=== PATIENT | male | born 1945 | race Caucasian/White ===

== ENCOUNTER 2018-07-31 11:45 | Day surgery (SDC) | payer MEDICARE, OTHER ==
[2018-07-30 13:00] LABS: HEMATOCRIT 41.8 % (42.0-54.0); HEMOGLOBIN 14.2 g/dL (13.5-17.5); MCH 30.8 pg (26.0-34.0); MCV 90.7 fL (80.0-100.0); MEAN PLATELET VOLUME 9.8 fL (7.4-10.4); RBC 4.61 10x6/uL (4.20-6.10); RDW 12.2 % (11.5-14.5); WBC 7.3 10x3/uL (4.8-10.8)
[~2018-07-31] VITALS: Ht 170.2 cm; Wt 91.6 kg
--- NOTE | ~2018-07-31 | OP ---
PATIENT NAME: JESUS MANUEL OSHEA MEDICAL RECORD: [id number] :47 LOCATION:D.OPS ADMISSION DATE: SURGEON: ISAI RODRIGUEZ DATE OF OPERATION: 07/31/2018 SURGEON: Isai Rodriguez DPM PREOPERATIVE DIAGNOSIS: Neuroma third intermetatarsal space, right foot. POSTOPERATIVE DIAGNOSIS: Neuroma third intermetatarsal space, right foot. PROCEDURE: Excision of neuroma third intermetatarsal space, right foot. ANESTHESIA: General. HEMOSTASIS: Pneumatic ankle tourniquet inflated to 250 mmHg. ESTIMATED BLOOD LOSS: Minimal. MATERIALS: 3-0 Vicryl, 4-0 nylon. INJECTABLES: A 10 cc of 0.5% bupivacaine plain. The patient has longstanding history of pain associated with a neuroma in the right foot. We have previously discussed the proposed procedure. Risks and benefits were discussed. Complications were reviewed. All questions were answered. He was appropriately consented for the above-mentioned procedure. DESCRIPTION OF PROCEDURE: The patient was brought in the operating room and placed on the operating table in a supine position. A time-out was called with Dr. Rodriguez, who identified the patient, the surgical site, and the surgery to be performed. Once appropriate anesthesia was obtained, the foot was prepped and draped in the usual aseptic manner. Attention was directed to the third intermetatarsal space of the right foot, where a 3-cm linear incision was made. This incision was carried deep to soft tissue with care being taken to retract all vital neurovascular structures. All bleeders were cauterized along the way. Through this incision, the deep transverse intermetatarsal ligament was identified and sharply transected between metatarsal heads 3 and 4. The neuroma was then identified. The nerve was then traced as far back proximally as possible and then sharply transected with a fresh 15 blade. Dissection was then carried out distally into the digital branches into the third and fourth toes. Each digital branch was dissected as far distally as possible and sharply transected. The specimen was passed from the field and sent to pathology. The surgical site was then investigated for any remaining pathological tissue and none was noted. The surgical site was then irrigated with copious amounts of normal sterile saline via bulb syringe. The subcutaneous was then reapproximated and coapted using 3-0 Vicryl. The skin was then reapproximated and coapted using 4-0 nylon. A dressing consisting of Xeroform, 4 x 4's, Kerlix, and Ben bandage was applied to the right foot. The pneumatic ankle tourniquet was deflated and capillary refill time was immediate to all toes of the right foot. The patient tolerated the procedure and anesthesia well. He left the operating room with vital signs stable and capillary refill time intact. OPERATIVE REPORT [id number] JESUS MANUEL OSHEA The patient was discharged home with instructions to ice and elevate the right foot. He was dispensed a postop shoe to further help offload the foot. He has my cell phone number for any afterhour difficulties. We will follow up with him next week. There were no complications with this procedure. TRANSINT:[id number] Voice Confirmation ID: [id number] DOCUMENT ID: [id number] ISAI RODRIGUEZ at 1813 CC: [id number] DICTATION DATE: 08/01/18 110 INSURANCE SALESPERSON: 08/01/18 [id number] [facility] 07/31/18 [id number] [place] [id number]
[~2018-07-31 11:45] MED LIST: FISH OIL 1,0001 CA1 PO; LIPITOR80 MG; NIASPAN500 MG PO; OCUVITE; OMEPRAZOLE20 M1 PO; TOPROL XL50 MG PO; VALSART/HCTZ TAB 160
[2018-07-31 12:35] VITALS: BP 121/58; Ht 170.2 cm; Wt 91.6 kg
== END 2018-07-31 18:35 | disposition home or self-care (01) ==
LOC: D.OPS 11:45 → D.PAN 14:00 → D.OPS 14:00 → D.PAN 14:30 → D.OPS 18:35
PROVIDERS: Anesthesiology
DX: G57.81 Other specified mononeuropathies of right lower limb (principal); Z01.812 Encounter for preprocedural laboratory examination